=== PATIENT | female | born 1945 | race African-American/Black ===

== ENCOUNTER 2024-02-21 14:50 | Emergency (ER) | payer MEDICARE, MEDICAID ==
[~2024-02-21] VITALS: Ht 167.6 cm; Wt 110.0 kg
[~2024-02-21 14:50] MED LIST: ALLO100T MT; APIX5TAB MT; ATOR40TA70 MT; DULO60CA64 MT; FURO-152 MT; FURO40TA5 MT; INSU100I24 SQ; LISI-186 PO; RIVA10TA MT; SACU1TAB MT
[2024-02-21 14:59] VITALS: O2SAT 99
[2024-02-21 15:58] LABS: BASOPHILS % 0.5 % (0.0-2.0); EOSINOPHILS % 1.9 % (0.0-5.0); HEMATOCRIT. 31.9 % (36.0-48.0); HEMOGLOBIN. 10.3 g/dL (12.0-16.0); LYMPHOCYTES % 26.4 % (20.0-50.0); MEAN CORPUSCULAR HEMOGLOBIN 28.6 pg (28.0-32.0); MEAN CORPUSCULAR HGB CONC 32.2 g/dL (31.0-37.0); MEAN CORPUSCULAR VOLUME 88.7 fL (81.0-99.0); MEAN PLATELET VOLUME 8.2 fl (7.4-10.4); MONOCYTES % 9.8 % (2.0-8.0); NEUTROPHILS % 61.4 % (40.0-76.0); PLATELET 278 x1000/uL (130-400); WHITE BLOOD COUNT 6.1 x1000/uL (4.5-11.0)
[2024-02-21 16:01] LABS: CHLORIDE 109 mEq/L (98-107); POTASSIUM 4.3 mEq/L (3.5-5.1); SODIUM 139 mEq/L (136-145)
[2024-02-21 16:02] LABS: CALCIUM 11.3 mg/dL (8.7-10.4); CARBON DIOXIDE 25 mEq/L (21-32)
[2024-02-21 16:07] LABS: CREATININE 0.7 mg/dL (0.6-1.0); GLUCOSE 99 mg/dL (70-105); UREA NITROGEN BLOOD 15 mg/dL (9-23)
[2024-02-21 16:08] LABS: TROPONIN I HIGH SENSITIVITY 9 ng/L (3.0-34)
[2024-02-21] MEDS: HYDROCODONE/ACETAMINOPHEN 5/325MG TABLET PO ONE (19:02)
[2024-02-21] MEDS: FUROSEMIDE 40MG/4ML VIAL IVP SCH (19:02)
[2024-02-21 19:31] LABS: TROPONIN I HIGH SENSITIVITY 9 ng/L (3.0-34)
[2024-02-21 21:23] VITALS: BP 136/73; PULSE 102; RESP 21; TEMP 98.2
[2024-02-21] MEDS ORDERED: ONDANSETRON HCL 4MG/2ML INJ IV PRN (21:45)
[2024-02-21] MEDS ORDERED: SODIUM CHLORIDE 0.9% 1,000 ML IV SCH (21:45)
[2024-02-21] MEDS ORDERED: IPRATROPIUM/ALBUTEROL 0.5-3(2.5)MG/3ML NEB NEB PRN (21:45)
[2024-02-21] MEDS ORDERED: MORPHINE SULFATE 2 MG/ML CPJ (NOT FOR IM USE) IV PRN (21:45)
[2024-02-21] MEDS ORDERED: ACETAMINOPHEN 325MG TABLET PO PRN (21:45)
[2024-02-21] MEDS ORDERED: HYDROCODONE/ACETAMINOPHEN 5/325MG TABLET PO PRN (21:45)
[2024-02-21] MEDS ORDERED: NALOXONE HCL 0.4MG/ML VIAL IV PRN (22:00)
[2024-02-22] MEDS ORDERED: FOLIC ACID 1MG TABLET PO SCH (09:00)
[2024-02-22] MEDS ORDERED: ENOXAPARIN 30MG/0.3ML SYR SUBCUT SCH (09:00)
== END 2024-02-21 21:25 ==
LOC: ER 15:29
DX: I11.0 Hypertensive heart disease with heart failure (principal); I50.9 Heart failure, unspecified; Z79.899 Other long term (current) drug therapy; Z86.73 Personal history of transient ischemic attack (TIA), and cerebral infarction without residual deficits; Z98.890 Other specified postprocedural states
CPT/HCPCS: 80048; 83880; 85025; 84484; 36415; 93971; 71045; 93005; 96374; 99285; J1940; Z7610 ×2